=== PATIENT | female | born 1975 | race Native Hawaiian/Other Pacific Islander ===

== ENCOUNTER 2019-09-04 13:52 | Outpatient (CLI) | payer OTHER ==
[2019-09-04 14:48] LABS: PLATELET COUNT 251 K/uL (152-353)
[2019-09-04 15:09] LABS: POTASSIUM 3.9 mmol/L (3.6-5.2)
== END 2019-09-04 19:33 | disposition home or self-care (01) ==
LOC: LAB 13:52
PROVIDERS: Family Medicine
DX: R09.89 Other specified symptoms and signs involving the circulatory and respiratory systems (principal)
CPT/HCPCS: 36415; 80053; 81000; 82728; 85027; 85379; 86140; 87635; G2023; U00003

== ENCOUNTER 2020-03-31 12:52 | Outpatient (CLI) | payer OTHER | END 2020-03-31 19:41 | disposition home or self-care (01) | LOC: MRI 12:52 | PROVIDERS: ATTEND Family Medicine | DX: M25.561 Pain in right knee (principal) ==

== ENCOUNTER 2021-10-22 15:00 | Outpatient (CLI) | payer OTHER | END 2021-10-22 21:16 | disposition home or self-care (01) | LOC: LABW 15:00 → LAB 15:00 | PROVIDERS: ATTEND Family Medicine | DX: R53.1 Weakness (principal); R09.81 Nasal congestion | CPT/HCPCS: 87502 ==

== ENCOUNTER 2022-07-14 10:09 | Outpatient (CLI) | payer OTHER ==
[2022-07-14 10:22] LABS: PLATELET COUNT 199 K/uL (152-353)
[2022-07-14 10:42] LABS: POTASSIUM 4.3 mmol/L (3.6-5.2)
== END 2022-07-14 19:20 | disposition home or self-care (01) ==
LOC: LAB 10:09
PROVIDERS: ATTEND Family Medicine
DX: Z00.00 Encounter for general adult medical examination without abnormal findings (principal)
CPT/HCPCS: 36415; 80053; 80061; 82306; 82607; 84439; 84443; 85027

== ENCOUNTER 2022-08-03 12:30 | Outpatient (CLI) | payer OTHER | END 2022-08-03 19:21 | disposition home or self-care (01) | LOC: MRI 12:30 | PROVIDERS: ATTEND Family Medicine | DX: M25.561 Pain in right knee (principal) ==